=== PATIENT | female | born 2000 | race Two or more races ===

== ENCOUNTER 2024-11-23 04:28 | Inpatient (IN) | payer MEDICAID, SELFPAY ==
[2024-11-23] VITALS (67 sets, daily range): BP systolic 99–127; BP diastolic 58–89; PULSE 59–98; RESP 13–99; TEMP 36.5–37; O2SAT 93–100; BMI 32.8
[2024-11-23] MEDS: RINGERS LACTATED 1000 ML 1,000 ML 100 ML IV (04:58)
[2024-11-23 05:37] LABS: Amphetamine/Metham Scrn,Ur OB Negative (Negative); Benzoylecgonine Screen, Ur OB Negative (Negative); Opiate Screen,Urine OB Negative (Negative); THC Screen,Urine OB Negative (Negative)
[2024-11-23 05:43] LABS: Basophils # (Auto) 0.0 Thou/mm3 (0.0-0.2); Basophils % (Auto) 0 % (0-2.5); Eosinophils # (Auto) 0.0 Thou/mm3 (0.0-0.5); Eosinophils % (Auto) 0 % (0-10); Hematocrit 28.7 % (36.0-46.0); Hemoglobin 9.2 g/dL (12.0-16.0); Immature Granulocytes Auto 0.09 Thou/mm3 (0.00-0.00); Lymphocytes # (Auto) 1.4 Thou/mm3 (1.0-4.8); Lymphocytes % (Auto) 13 % (10-50); Mean Corpuscular HGB Conc 32.1 g/dl (31.0-37.0); Mean Corpuscular Hemoglobin 23.6 pg (25.0-35.0); Mean Corpuscular Volume 74 fL (80-100); Monocytes # (Auto) 0.6 Thou/mm3 (0.0-0.8); Monocytes % (Auto) 5 % (0-12); Neutrophils # (Auto) 8.6 Thou/mm3 (1.8-7.7); Neutrophils % (Auto) 80 % (37-80); Nucleated Red Blood Cell # 0.00 Thou/mm3 (0.00-0.00); Nucleated Red Blood Cell % 0 /100 WBC (0); Platelet Count 180 Thou/mm3 (140-440); RDW Standard Deviation 37.1 fL (36.4-46.3); Red Blood Count 3.90 Miln/mm3 (4.00-5.20); White Blood Count 10.7 Thou/mm3 (3.6-11.0)
[2024-11-23] MEDS: OXYTOCIN in NS 20 units 20 UNIT/1,000 ML BAG 125 UNIT IV (10:33)
[2024-11-23] MEDS: LIDOCAINE HCL 1% 20 ML VIAL INFL (10:39)
[2024-11-23] MEDS: BENZO/LANO/ALOE (Dermoplast) 60 GM CAN 1 SPRAY TOP (10:55)
[2024-11-23] MEDS: METHYLERGONOVINE INJ 0.2 MG/ML VIAL IM (10:58)
[2024-11-23] MEDS: IBUPROFEN TAB 400 MG TABLET 800 MG PO (11:09)
--- NOTE | 2024-11-23 11:28 | PD.LDHP ---
Documentation for date of: 11/23/24 OB Labor/Induct. HPI History of Present Illness Chief complaint: painful ctx : 3 Para: 1 Term pregnancies: 0 pregnancies: 1 Living children: 1 History of Abortions: Spontaneous and Elective: 1 History of Vaginal deliveries: 1 History of sections: No History of : No Date of last menstrual period: 02/23/24 EMANUEL: 11/29/24 Gestational Age (weeks): 39 Gestational Age (days): 1 Gestational age based on last menstrual period: 39 History of present illness: Patient presents for regular, painful ctx. No LOF. No vaginal bleeding. Normal movement. No fevers/chills. History of Present Dating criteria: LMP confirmed by 2nd trimester US Adequate Care: No (LTC 24.3 WKS) Ultrasounds: normal mid trimester US (08/21/24 anterior placenta, no abnormal findings) Narrative: : 2019 at 36wk related to PTL, 5lb G2: early sab G3: -late to care -hx of THC use -anemia taking iron -current BMI 32.9 -PNC with [facility] Labs Maternal Blood Type: A Pos Labs: Positive: Rubella Titre, Negative: RPR, Hepatitis B, HIV, Chlamydia, Gonorrhea and Group Beta Strep and Unknown: Herpes Type 1, Herpes Type 2 and Covid-19 Narrative: NIPT negative Review of Systems Review of Systems Narrative Review of Systems: Review of Systems Systems Reviewed: All systems reviewed, normal except as documented Constitutional Constitutional: Denies body ache(s), Denies chills, Denies fever(s) and Denies headache(s) ENT Ears, Nose, Mouth, and Throat: Denies headache(s) and Denies vertigo Cardiovascular Cardiovascular: Denies chest pain, Denies palpitations, Denies dyspnea and Denies syncope Respiratory Respiratory: Denies cough, Denies dyspnea Gastrointestinal Gastrointestinal: Denies nausea and Denies vomiting Neurologic Neurologic: Denies convulsions, Denies headache(s), Denies other visual disturbances, Denies syncope and Denies vertigo Past Medical History Family History OTHER FAMILY HX: T2DM Surgical History SURGICAL: Negative Section OTHER SURGICAL HX: denies Social History SOCIAL: No tobacco/ETOH. Hx of THC use. Past Medical History Comments PMH COMMENT: Current BMI 32.9 Meds Home Medications and Allergies Home Medications ?Medication ?Instructions ?Recorded ?Confirmed ?Type vitamins-iron fumarate 27 1 tab PO QDAY 06/30/18 11/23/24 History mg iron-folic acid 0.8 mg tablet ( Vitamin) ascorbic acid (vitamin C) 500 mg 500 mg PO QDAY 11/23/24 11/23/24 History tablet (C-500) ferrous sulfate 325 mg (65 mg 325 mg PO QDAY 11/23/24 11/23/24 History iron) tablet (Feosol) Allergies Allergy/AdvReac Type Severity Reaction Status Date / Time No Known Allergies Allergy Verified 11/23/24 04:47 OB Exam Physical Exam Vital signs: Temp Pulse Resp BP Pulse Ox 98.6 F 74 18 120/80 100 11/23/24 11:17 11/23/24 11:25 11/23/24 11:17 11/23/24 11:11/23/24 11:27 Narrative: General: well developed, well nourished, no acute distress, conversant Cardiac: normal heart rate Lungs: breathing without distress Abdomen: soft, gravid, non-tender, no rebound or guarding Extremities: no edema BLE Detailed Labor and Delivery Exam Dilation (cm): 4 Effacement (%): 60 Cervix position: mid station: -2 Consistency: soft Presentation: Vertex Membranes: intact monitor accelerations: 15x15 monitor decelerations: None prison variability: Moderate (11-25) Contraction frequency (min): q4-5min OB Results Labs 11/23/24 04:48 Labs: Short CBC 11/23/24 Range/Units 04:48 WBC 10.7 (3.6-11.0) Thou/mm3 Hgb 9.2 L (12.0-16.0) g/dL Hct 28.7 L (36.0-46.0) % Plt Count 180 (140-440) Thou/mm3 OB Assessment & Plan Assessment and Plan (1) Active labor at term: Status: Acute Assessment and plan: Deborah is a 24yo with SIUP at 39&1wk presenting in active labor. Regular/painful contractions, SCE: 4/60/-2, intact. Vitals wnl, benign exam. Reassuring assessment. PMhx/ complicated by: -Hx of PTD in 2019 at 36wk, 5lb -late to care -hx of THC use -anemia taking iron -current BMI 32.9 -PNC with [facility] Plan: -Admit to L&D -Establish IV, routine labs -CEFM -Clear liquid diet -[employer] Teacher/consent re: -GBS status: negative -Anticipate -Safe to proceed (2) 39 weeks gestation of : Status: Acute (3) History of delivery: Status: Acute (4) Late care affecting in third trimester: Status: Acute
--- NOTE | 2024-11-23 11:39 | OBDSUM_ITS ---
Data (Soto) Data Hx Section: No : 3 Term: 0 : 1 Livin Abortions: Spontaneous & Theraputic: 1 Delivery Data (Soto) Labor Data Initiation of labor: Spontaneous Induction/Augmentation Agent: None ROM date: 11/23/24 ROM time: 09:27 Amniotic membrane rupture type: Artificial Amniotic fluid description: Bloody Delivery Data Onset of labor date: 11/23/24 Onset of labor time: 05:24 Complete dilation date: 11/23/24 Complete dilation time: 10:21 delivery date: 11/23/24 delivery time: 10:29 Placenta delivery date: 11/23/24 Placenta delivery time: 10:33 Stage 1 total time: Labor - Stage 1 Duration 4 hours and 57 minutes Delivered by: Ileana Post Delivery nurse: RAZ Neworn nurse: DEE Compensation Coordinator at delivery: No Support person(s) at delivery: FOB, MOTHER OF PATIENT Delivery Method Delivery method: Normal Vaginal Delivery Presentation: Vertex Anesthesia Type Anesthesia Type: Local Placenta Placenta delivery description: Spontaneous Cord blood sent to lab: Yes cord blood collection: Cord Blood Type Episiotomy Episiotomy description: None EBL Estimated blood loss (ml): 300 Umbilical Cord cord description: 3 Vessels Additional Procedures Deborah is a 24yo [id number] s/p uncomplicated at 39&1wk after presenting in active labor, delivering at 1029 on 11/23/2024. On presentation, SCE was 4/60/-2. She progressed with only AROM as augmentation to C/C/0 at which point she began pushing. She declined epidural. With good maternal pushing efforts, 's head delivered OA and restituted SHERON. Left anterior shoulder delivered easily followed by posterior shoulder and corpus. Left compound hand noted. Infant had spontaneous cry and was vigorous. Apgars 8/9. placed on maternal abdomen where nose/mouth were suctioned and dried/stimulated. After approximately 1 minute, cord was clamped x2 and cut by FOB. Cord blood collected for typing. With fundal massage and cord traction, placenta delivered spontaneously and intact with 3 vessel centrally inserted cord. Bimanual massage performed and IV pitocin given per protocol with fundus then firm at u-2cm and hemostasis noted. Inspection of perineum and vagina revealed right superficial labial laceration and a 2nd degree midline perineal laceration which were repaired in routine fashion with 3-0 vicryl after anesthetizing with 1% lidocaine- total reapproximation and hemostasis achieved. Small trickle of blood, so sweep just within cervix/KARTHIK performed which retrieved a small amount of clot. 0.2mg IM methergine given with observed hemostasis after. All counts correct x2. Mom and infant were doing well when I left the room. Ileana Post MD Complications Complications: none Strong Data (Soto) Strong Data order: 1 's gender: Female Identification band number: [id number] weight (gms): 3140 g Weight (pounds): 6 lbs and 14.8 ozs 1 minute: 8 5 minutes: 9
[2024-11-23 16:13] LABS: Syphilis Nonreactive (Nonreactive)
[2024-11-23 18:18] LABS: Basophils # (Auto) 0.0 Thou/mm3 (0.0-0.2); Basophils % (Auto) 0 % (0-2.5); Eosinophils # (Auto) 0.0 Thou/mm3 (0.0-0.5); Eosinophils % (Auto) 0 % (0-10); Hematocrit 26.2 % (36.0-46.0); Immature Granulocytes Auto 0.14 Thou/mm3 (0.00-0.00); Lymphocytes # (Auto) 1.0 Thou/mm3 (1.0-4.8); Lymphocytes % (Auto) 5 % (10-50); Mean Corpuscular HGB Conc 32.1 g/dl (31.0-37.0); Mean Corpuscular Hemoglobin 23.5 pg (25.0-35.0); Mean Corpuscular Volume 73 fL (80-100); Monocytes # (Auto) 0.9 Thou/mm3 (0.0-0.8); Monocytes % (Auto) 4 % (0-12); Neutrophils # (Auto) 17.4 Thou/mm3 (1.8-7.7); Neutrophils % (Auto) 90 % (37-80); Nucleated Red Blood Cell # 0.00 Thou/mm3 (0.00-0.00); Nucleated Red Blood Cell % 0 /100 WBC (0); Platelet Count 166 Thou/mm3 (140-440); RDW Standard Deviation 36.9 fL (36.4-46.3); Red Blood Count 3.57 Miln/mm3 (4.00-5.20); White Blood Count 19.4 Thou/mm3 (3.6-11.0)
[2024-11-23 18:40] LABS: Hemoglobin 8.4 g/dL (12.0-16.0)
--- NOTE | 2024-11-23 19:09 | PC.NURSE ---
Dr. Post made aware of cbc results no new orders
[2024-11-23] MEDS: DOCUSATE SOD 100 MG CAPSULE PO (20:44)
[2024-11-24 00:10] VITALS: BP 98/61; PULSE 75; RESP 14; TEMP 36.4; O2SAT 99
[2024-11-24 03:25] VITALS: BP 102/67; PULSE 70; RESP 16; TEMP 36.7; O2SAT 100
[2024-11-24 08:00] VITALS: BP 110/71; PULSE 76; RESP 16; TEMP 36.7; O2SAT 100
[2024-11-24] MEDS: ACETAMINOPHEN 325 MG TABLET 650 MG PO (08:17)
[2024-11-24] MEDS: DOCUSATE SOD 100 MG CAPSULE PO (08:17)
--- NOTE | 2024-11-24 09:34 | PC.CC ---
Patient is a 24-year-old female who presents to the hospital to deliver her baby girl. Afia SAUNDERS received a consult order for Late to care at 24 weeks and history of THC. Patient confirmed information on demographics. Afia SAUNDERS made efdf-cf-lapn contact to complete initial assessment for late to care and hx of THC. PROCESS LINE OPERATOR introduced herself, role in the agency, reason for visit, and discussed limits of confidentiality. Patient appeared alert and oriented to self, time, place, and situation. Patient made good eye contact. Patient was cooperative. Patient?s behavior appeared ordinary. No signs of delusions or hallucinations. Patient reports she found out she was in March 2024 and attempted to get an OB appointment but they were all full not taking new patients. She disclosed [facility] was not able to provide her with an appointment until July 2024. Patient reports the last time she used THC was last year and does not plan to use any longer. Patient has all the supplies she needs for her new born and plans to formula feed. She is not receiving WIC as a resource, SNAP or Syed Aid. Patient denied history of domestic violence and CWS involvement. Patient reports she has a strong support system that includes her mother, Mother Fanney and Father of Baby Da Juarez who is involved. PROCESS LINE OPERATOR provided psychoeducation regarding baby blues and Post- Depression, as well as counseling groups at [facility]. SW provided community resources: Warm Line and Crisis Line. PROCESS LINE OPERATOR, provided update to bedside GODFREY Rollins.
[2024-11-24 11:44] VITALS: BP 108/67; PULSE 77; RESP 18; TEMP 36.7; O2SAT 100
--- NOTE | 2024-11-24 13:15 | ESDS_ITS ---
DS: Providers Provider Date of admission: 11/23/24 04:51 Primary care physician: Physician No Primary/Family Admitting Provider: Ileana Post MD Attending Provider on Admission: Ileana Post MD Consults: 11/23/24 11:25 Referral Routine Comment: Attending Provider on DC: Ileana Post MD Discharging Provider: Ileana Post MD DS: Diagnosis Discharge Diagnosis (1) care and examination: Status: Acute (2) Active labor at term: Status: Acute (3) Late care affecting in third trimester: Status: Acute (4) History of delivery: Status: Acute (5) 39 weeks gestation of : Status: Acute Problem List Completed Was Problem List Reviewed/Reconciled?: Yes Summary/Hosp Course Brief History: Deborah is a 24yo [id number] s/p uncomplicated at 39&1wk after presenting in active labor, delivering at 1029 on 11/23/2024. She has had an uncomplicated course, meeting all milestones and feels ready for discharge home. She is ambulating without lightheadedness, tolerating regular diet no n/v, spontaneously voiding without issue. She has no chest pain or shortness of breath. No fevers or chills. Minimal, appropriate discomfort. Vitals normal, benign exam. Hemodynamically stable with no evidence of infection. PP Hgb 8.4 from 9.2. No sx of anemia. Rx iron. Peripartum Data Delivery Method: Normal Vaginal Delivery Episiotomy Description: None Status at Discharge Functional status at discharge: independent ambulation Overall status at discharge: patient is back to baseline Time Spent with Patient Time attestation: Total time spent providing and/or coordinating discharge services: Exam Vital Signs Temp Pulse Resp BP Pulse Ox O2 Del Method 98.0 F 77 18 108/67 100 Room Air 11/24/24 11:44 11/24/24 11:44 11/24/24 11:44 11/24/24 11:44 11/24/24 11:44 11/24/24 11:44 Narrative Exam General: well developed, well nourished, no acute distress, conversant Cardiac: normal heart rate Lungs: breathing without distress Abdomen: soft, post-gravid, non-tender, no rebound or guarding, Fundus firm at u-3cm. Extremities: no pain with palpation of calves, trace edema of BLE Discharge Plan Plan Patient Disposition: HOME (Self Care) Patient condition on transfer: Stable Prescriptions/Referrals Prescriptions/Med Rec: New docusate sodium 100 mg Capsule 100 mg PO BID 10 Days Qty: 20 0RF ibuprofen 800 mg tablet 800 mg PO Q8H PRN (Reason: See Comments) 10 Days Qty: 20 0RF ferrous sulfate 325 mg (65 mg iron) tablet 325 mg PO QDAY Qty: 30 0RF Continued Vitamin 27 mg iron- 0.8 mg Tablet 1 tab PO QDAY ascorbic acid (vitamin C) [C-500] 500 mg tablet 500 mg PO QDAY Discontinued ferrous sulfate [Feosol] 325 mg (65 mg iron) tablet 325 mg PO QDAY Referrals: No Primary/Family,Physician [Primary Care Provider] Patient/Caregiver Discharge Instructions Discharge Activity: activity as tolerated and other Other Discharge Activity Instructions:: follow up with CNM at [facility] in 4 to 6 weeks for visit, call clinic for appointment vaginal rest and no heavy lifting more than 10 pounds for 6 weeks Other Discharge Diet Instructions: regular diet Education Materials: After a Vaginal , After Delivery Concerns, Breast Care After Print Language: Yakut Activity Restrictions/Additional Instructions: follow up with CNM at [facility] in 2 to 6 weeks for visit, call clinic for appointment Stand Alone Forms: Manisha Award Info., Patient Portal Info Letter Discharge Order Discharge Orders: Discharge (Routine); Ordered 11/24/24 Ordered By: Ileana Post Planned Discharge Date 11/24/24
== END 2024-11-24 14:15 | disposition home or self-care (01) | DRG 560 ==
LOC: S4SX 11:57 → S4NX 13:38
PROVIDERS: Admitting Provider Obstetrics & Gynecology; Visit Provider Obstetrics & Gynecology
DX: O99.02 Anemia complicating childbirth (principal); Z3A.39 39 weeks gestation of pregnancy; Z37.0 Single live birth; O70.1 Second degree perineal laceration during delivery; Z87.51 Personal history of pre-term labor
CPT/HCPCS: 36415; 59409; 80307; 85025; 86780; 86850; 86900; 86901; 94762; J2210; J2590; J3490; J7120; A9270